=== PATIENT | female | born 1985 | race African-American/Black ===

== ENCOUNTER 2019-12-12 18:30 | Emergency (ER) | payer SELFPAY ==
[~2019-12-12] VITALS: Ht 149.9 cm; Wt 168.1 kg
[2019-12-12 19:25] VITALS: BP 147/78
--- NOTE | 2019-12-12 20:17 | PHYS DOC ---
Past Medical History Past Medical History: Asthma Past Surgical History: Tubal ligation Smoking Status: Never Smoker Alcohol Use: Occasionally General Adult EDM: Chief Complaint: Palpitations HPI: HPI: Patient is a 34 year old female who presents with palpitations and chest discomfort. Patient reports that yesterday she was feeling fine and when she got done with her day she went to go to the bathroom and after a bowel movement she noted that she started having some abnormal sensations in her chest. She describes it as a fluttering sensation that would come and go for about a minute and then it resolved and has not returned. She denied any shortness of breath, diaphoresis, nausea or vomiting but says she did have chest discomfort as described that was nonradiating, patient stated that she began to feel dizzy as well. She also felt a sense of doom at the time. She says that the dizziness lasted just a few seconds and was described as presyncopal. Patient denied any loss of consciousness. She denies any ear pain, but complains of a headache that is bifrontal and not as bad as her general migraines but similar. Patient denies photophobia but does complain of some sensitivity to sound. Patient denied fever, chills, cough. Since that episode yesterday she is not had any reoccurrence. She decided that since she had a headache she come in to get treated for that and discussed the palpitations. Review of Systems: Review of Systems: Constitutional: Denies fever or chills. [] Eyes: Denies change in visual acuity. [] HENT: Denies nasal congestion or sore throat. [] Respiratory: See HPI. [] Cardiovascular: See HPI. [] GI: Denies abdominal pain, nausea, vomiting, bloody stools or diarrhea. [] : Denies dysuria. [] Musculoskeletal: Denies back pain or joint pain. [] Integument: Denies rash. [] Neurologic: Denies focal weakness or sensory changes. [] Endocrine: Denies polyuria or polydipsia. [] Lymphatic: Denies swollen glands. [] Psychiatric: Denies depression or anxiety. [] Heart Score: Risk Factors: Risk Factors: DM, Current or recent (<one month) smoker, HTN, HLP, family history of CAD, obesity. 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 [] HENT: Normocephalic, atraumatic, bilateral external ears normal, oropharynx moist, no oral exudates, nose normal. [] Eyes: PERRLA, EOMI, conjunctiva normal, no discharge. [] Neck: Normal range of motion, no tenderness, supple, no stridor. [] Cardiovascular:Heart rate regular rhythm, no murmur, no S3, no S4, and no shift of PMI, pulses 2 out of 2 in the dorsalis pedis bilaterally [] Lungs & Thorax: Bilateral breath sounds clear to auscultation [] Abdomen: Bowel sounds normal, soft, no tenderness, no masses, no pulsatile masses. [] Skin: Warm, dry, no erythema, no rash. [] Back: No tenderness, no CVA tenderness. [] Extremities: No tenderness, no cyanosis, no clubbing, ROM intact, 1 mm pitting edema bilaterally symmetric. [] Neurologic: Alert and oriented X 3, normal motor function, normal sensory function, no focal deficits noted. [] Psychologic: Affect normal, judgement normal, mood normal. [] Current Patient Data: Vital Signs: Vital Signs Date Time Temp Pulse Resp B/P (MAP) Pulse Ox O2 Delivery O2 Flow Rate FiO2 12/12/19 19:25 98.2 82 147/78 (101) 99 Room Air 98.2 EKG: EKG: Heart rate 87 bpm, normal sinus rhythm, normal axis, normal intervals, normal ECG [] Radiology/Procedures: Radiology/Procedures: [] Course & Med Decision Making: Course & Med Decision Making Pertinent Labs and Imaging studies reviewed. (See chart for details) 0015-patient was seen and reevaluated. Patient is currently pain-free. No evidence of any acute coronary syndrome was identified. I discussed reasons to return, treatment plan and need for follow-up. [] Dragon Disclaimer: Kirit Disclaimer: This electronic medical record was generated, in whole or in part, using a voice recognition dictation system. Departure Departure Impression: Primary Impression: Palpitations Additional Impression: Common migraine Qualified Codes: G43.009 - Migraine without aura, not intractable, without status migrainosus Disposition: HOME, SELF-CARE Condition: IMPROVED Referrals: NO PCP (PCP) VENANCIO MATTHEWS MD Patient Instructions: Migraine Headache, Palpitations Justicifation of Admission Dx: Justifications for Admission: Justification of Admission Dx: N/A ALEXEY OZUNA MD Dec 12, 2019 20:17
[2019-12-12] MEDS ORDERED: diphenhydrAMINE 50 MG/ML VIAL IVP ONE (20:30)
[2019-12-12] MEDS ORDERED: IV NORMAL SALINE 500ML BAG 500 ML IV ONE (20:30)
[2019-12-12] MEDS ORDERED: KETOROLAC 15 MG/ML VIAL. IVP ONE (20:30)
[2019-12-12] MEDS ORDERED: METOCLOPRAMIDE HCL 10 MG/2 ML VIAL. IVP ONE (20:30)
[2019-12-12 20:36] LABS: BASO % 1 % (0-3); EOS # 0.3 x10^3/uL (0.0-0.7); EOS % 4 % (0-3); HEMATOCRIT 34.9 % (36.0-47.0); HEMOGLOBIN 11.3 g/dL (12.0-15.5); LYMPH # 4.2 x10^3/uL (1.0-4.8); LYMPH % 44 % (24-48); MEAN CORPUSCULAR HEMOGLOBIN 26 pg (25-35); MEAN CORPUSCULAR HGB CONC 32 g/dL (31-37); MEAN CORPUSCULAR VOLUME 79 fL (79-100); MONO # 0.6 x10^3/uL (0.0-1.1); MONO % 7 % (0-9); NEUT # 4.3 x10^3/uL (1.8-7.7); NEUT % 46 % (31-73); PLATELET COUNT 352 x10^3/uL (140-400); RED BLOOD COUNT 4.43 x10^6/uL (3.50-5.40); RED CELL DISTRIBUTION WIDTH 14.5 % (11.5-14.5); WHITE BLOOD COUNT 9.5 x10^3/uL (4.0-11.0)
--- NOTE | 2019-12-12 21:03 | RAD ---
Study: CR CHEST PA LATERAL Indication: Chest pain. Comparison: None. Findings: The cardiomediastinal silhouette is within normal limits for size. Unremarkable melissa. Asymmetric haziness at the infrahilar right lung without a correlate for this finding on the lateral view. The partially assessed ribs are grossly intact. The spine is incompletely evaluated due to body habitus. Impression: Faint asymmetric haziness at the infrahilar right lung on the PA view but without a correlate on the lateral view. An infectious infiltrate is favored less likely than mild volume loss or summation artifact. Otherwise unremarkable appearance of the chest. Electronically signed by: MEHUL ROBERTS MD (12/12/2019 9:01 PM) [id number]
[2019-12-12 21:51] LABS: CALCIUM 8.5 mg/dL (8.5-10.1); CREATININE 0.8 mg/dL (0.6-1.0); GFR 98.8; POTASSIUM 3.9 mmol/L (3.5-5.1)
[2019-12-12 21:56] LABS: ALBUMIN 2.9 g/dL (3.4-5.0); ALBUMIN/GLOBULIN RATIO 0.6 (1.0-1.7); TOTAL BILIRUBIN 0.2 mg/dL (0.2-1.0); TOTAL PROTEIN 7.6 g/dL (6.4-8.2)
--- NOTE | 2019-12-13 06:18 | EKG ---
[facility] [address] [place] [address] Test Date: 2019-12-12 Test Time: 19:19:08 Pat Name: FINN SOTO Department: Room: Gender: F Wrong Address Clerk: : [id number] Requested By: ALEXEY OZUNA Order Number: [id number] Reading MD: Measurements Intervals Purlear Rate: 87 P: -31 MS: 164 QRS: 44 QRSD: 86 T: 17 QT: 372 QTc: 448 Interpretive Statements SINUS RHYTHM NO SPECIFIC ECG ABNORMALITIES RI6.01 No previous ECG available for comparison
== END 2019-12-13 00:10 | disposition home or self-care (01) ==
LOC: ER 18:30
DX: R00.2 Palpitations (principal); G43.009 Migraine without aura, not intractable, without status migrainosus; R07.89 Other chest pain; R42 Dizziness and giddiness; J45.909 Unspecified asthma, uncomplicated; Z91.013 Allergy to seafood; Z91.018 Allergy to other foods
CPT/HCPCS: 36415; 71046; 80053; 84443; 84484; 85025; 93005; 96361; 96374; 96375; 99285; J1200; J1885; J2765; J7040